=== PATIENT | female | born 1990 | race African-American/Black ===

== ENCOUNTER 2018-02-08 12:30 | Emergency (ER) | payer BC ==
[2018-02-08] MEDS ORDERED: SODIUM CHLORIDE 0.9% 1,000 ML IV STA (12:59)
[2018-02-08] MEDS ORDERED: ONDANSETRON 4 MG/2 ML VIAL IVP STA (12:59)
[2018-02-08 13:38] LABS: Basophils % (A) 0 %; Eosinophils # (A) 0.1 k/uL (0-0.7); Eosinophils % (A) 1 %; HCT 42.3 % (34.0-46.0); HGB 13.9 gm/dL (11.4-16.0); Lymphocytes # (A) 1.3 k/uL (1.0-4.8); Lymphocytes % (A) 11 %; MCH 28.4 pg (25.0-35.0); MCHC 32.9 g/dL (31.0-37.0); MCV 86.3 fL (80.0-100.0); Mean Platelet Volume 7.2; Monocytes # (A) 0.4 k/uL (0-1.0); Monocytes % (A) 4 %; Neutrophils # (A) 9.4 k/uL (1.3-7.7); Neutrophils % (A) 83 %; Platelet Count 238 k/uL (150-450); RDW 13.9 % (11.5-15.5); WBC 11.2 k/uL (3.8-10.6)
--- NOTE | 2018-02-08 13:46 | ED ---
General Adult HPI - General Chief complaint: Allergic Reaction Stated complaint: poss allergic rxn, facial swelling Time Seen by Provider: 02/08/18 12:44 Source: patient Mode of arrival: ambulatory Limitations: no limitations - History of Present Illness Initial comments: 27-year-old female patient presents to the emergency department today for evaluation of vomiting, facial swelling, and redness. Patient states she isn't taking clindamycin for the last 2 days for dental infection. Patient states that all night last night she had multiple episodes of vomiting is unable to keep down any food or fluids. Last vomiting episode was around 11 AM. Patient states she is having ALLERGIC reaction to the clindamycin. She denies any throat swelling, lip swelling, tongue swelling. She denies any rash. Denies any shortness of breath. She denies any abdominal pain, hematuria, dysuria, urinary frequency, urinary urgency. Denies any constipation or diarrhea. Patient denies any recent rash, fever, chills, chest pain, back pain, numbness, tingling, dizziness, weakness, headache, visual changes, or any other complaints. - Related Data Home Medications Medication Instructions Recorded Confirmed Albuterol Sulfate [Proair Hfa] 2 puff INHALATION RT-QID PRN 08/13/15 02/08/18 Budesonide-Formot 160-4.5 Mcg 2 puff INHALATION RT-BID 08/13/15 02/08/18 [Symbicort 160-4.5 Mcg Inhaler] Previous Rx's Medication Instructions Recorded Ibuprofen [Motrin] 600 mg PO Q8HR PRN #30 tab 02/08/18 Ondansetron [Zofran ODT] 4 mg PO Q8HR PRN #10 tab 02/08/18 predniSONE 50 mg PO DAILY #3 tab 02/08/18 Allergies Allergy/AdvReac Type Severity Reaction Status Date / Time cephalexin monohydrate Allergy Unknown Verified 02/08/18 12:55 [From Keflex] clindamycin Allergy Rash/Hives Verified 02/08/18 12:55 Review of Systems ROS Statement: Those systems with pertinent positive or pertinent negative responses have been documented in the HPI. ROS Other: All systems not noted in ROS Statement are negative. Past Medical History Past Medical History: Asthma History of Any Multi-Drug Resistant Organisms: MRSA MDRO Source:: axilla Past Surgical History: No Surgical Hx Reported Past Psychological History: No Psychological Hx Reported Smoking Status: Current every day smoker Past Alcohol Use History: Occasional Past Drug Use History: None Reported General Exam Limitations: no limitations General appearance: alert, in no apparent distress, other (This is a well- developed, well-nourished adult female patient in no acute distress. Vital signs upon presentation are temperature 98.0F, pulse 94, respirations 20, blood pressure 160/95, pulse ox 99% on room air.) Eye exam: Present: normal appearance, PERRL, EOMI. Absent: scleral icterus, conjunctival injection, periorbital swelling ENT exam: Present: normal exam, normal oropharynx, mucous membranes moist Respiratory exam: Present: normal lung sounds bilaterally. Absent: respiratory distress, wheezes, rales, rhonchi, stridor Cardiovascular Exam: Present: regular rate, normal rhythm, normal heart sounds. Absent: systolic murmur, diastolic murmur, rubs, gallop, clicks GI/Abdominal exam: Present: soft, normal bowel sounds. Absent: distended, tenderness, guarding, rebound, rigid Neurological exam: Present: alert, oriented X3, CN II-XII intact Psychiatric exam: Present: normal affect, normal mood Skin exam: Present: warm, dry, intact, normal color, rash (Patient has petechial rash to face and soft palate. Non-blanchable. No evidence of urticaria or vesicular lesions.) Course Vital Signs 02/08/18 02/08/18 02/08/18 12:41 14:05 15:34 Temperature 98 F 97.3 F L Pulse Rate 94 60 79 Respiratory 20 18 18 Rate Blood Pressure 160/95 139/59 131/96 O2 Sat by Pulse 99 100 98 Oximetry Medical Decision Making - Medical Decision Making 27-year-old female patient presents to the emergency department today for evaluation of possible ALLERGIC reaction to clindamycin which she is taking for dental infection. Physical examination did reveal mild generalized swelling of the face with petechial rash. Patient also had some petechiae to the soft palate. Patient did report vomiting throughout the night last night states that several episodes were quite forceful and did increase her facial pressure. Labs reviewed and did reveal normal platelet count. Did inspect the teeth, there is no evidence of periapical abscess at this time. Patient is ALLERGIC to both penicillins and clindamycin so she is instructed to call her dentist for further instruction regarding antibiotic use. She is instructed to return immediately for further evaluation if she develops localized facial swelling, fever, chills, or intraoral abscess. She'll be put on a 3 day course of steroids and instructed to take Benadryl as needed. Return parameters were discussed in detail. She verbalizes understanding and agrees with this plan. - Lab Data Result diagrams: 02/08/18 13:08 02/08/18 13:08 Lab Results 02/08/18 02/08/18 02/08/18 Range/Units 13:08 13:08 13:08 WBC 11.2 H (3.8-10.6) k/uL RBC 4.90 (3.80-5.40) m/uL Hgb 13.9 (11.4-16.0) gm/dL Hct 42.3 (34.0-46.0) % MCV 86.3 (80.0-100.0) fL MCH 28.4 (25.0-35.0) pg MCHC 32.9 (31.0-37.0) g/dL RDW 13.9 (11.5-15.5) % Plt Count 238 (150-450) k/uL Neutrophils % 83 % Lymphocytes % 11 % Monocytes % 4 % Eosinophils % 1 % Basophils % 0 % Neutrophils # 9.4 H (1.3-7.7) k/uL Lymphocytes # 1.3 (1.0-4.8) k/uL Monocytes # 0.4 (0-1.0) k/uL Eosinophils # 0.1 (0-0.7) k/uL Basophils # 0.0 (0-0.2) k/uL Sodium 138 (137-145) mmol/L Potassium 4.2 (3.5-5.1) mmol/L Chloride 109 H (98-107) mmol/L Carbon Dioxide 22 (22-30) mmol/L Anion Gap 7 mmol/L BUN 12 (7-17) mg/dL Creatinine 0.50 L (0.52-1.04) mg/dL Est GFR (CKD-EPI)AfAm >90 (>60 ml/min/1.73 sqM) Est GFR (CKD-EPI)NonAf >90 (>60 ml/min/1.73 sqM) Glucose 106 H (74-99) mg/dL Calcium 9.3 (8.4-10.2) mg/dL Total Bilirubin 0.5 (0.2-1.3) mg/dL AST 21 (14-36) U/L ALT 21 (9-52) U/L Alkaline Phosphatase 61 (38-126) U/L Total Protein 6.7 (6.3-8.2) g/dL Albumin 3.7 (3.5-5.0) g/dL Amylase 59 (30-110) U/L Lipase 44 (23-300) U/L Urine Color Urine Appearance (Clear) Urine pH (5.0-8.0) Ur Specific Fork (1.001-1.035) Urine Protein (Negative) Urine Glucose (UA) (Negative) Urine Ketones (Negative) Urine Blood (Negative) Urine Nitrite (Negative) Urine Bilirubin (Negative) Urine Urobilinogen (<2.0) mg/dL Ur Leukocyte Esterase (Negative) Urine WBC (0-5) /hpf Ur Squamous Epith Cells (0-4) /hpf Urine Bacteria (None) /hpf Urine Mucus (None) /hpf Urine HCG, Qual Not Detected (Not Detectd) 02/08/18 Range/Units 13:08 WBC (3.8-10.6) k/uL RBC (3.80-5.40) m/uL Hgb (11.4-16.0) gm/dL Hct (34.0-46.0) % MCV (80.0-100.0) fL MCH (25.0-35.0) pg MCHC (31.0-37.0) g/dL RDW (11.5-15.5) % Plt Count (150-450) k/uL Neutrophils % % Lymphocytes % % Monocytes % % Eosinophils % % Basophils % % Neutrophils # (1.3-7.7) k/uL Lymphocytes # (1.0-4.8) k/uL Monocytes # (0-1.0) k/uL Eosinophils # (0-0.7) k/uL Basophils # (0-0.2) k/uL Sodium (137-145) mmol/L Potassium (3.5-5.1) mmol/L Chloride (98-107) mmol/L Carbon Dioxide (22-30) mmol/L Anion Gap mmol/L BUN (7-17) mg/dL Creatinine (0.52-1.04) mg/dL Est GFR (CKD-EPI)AfAm (>60 ml/min/1.73 sqM) Est GFR (CKD-EPI)NonAf (>60 ml/min/1.73 sqM) Glucose (74-99) mg/dL Calcium (8.4-10.2) mg/dL Total Bilirubin (0.2-1.3) mg/dL AST (14-36) U/L ALT (9-52) U/L Alkaline Phosphatase (38-126) U/L Total Protein (6.3-8.2) g/dL Albumin (3.5-5.0) g/dL Amylase (30-110) U/L Lipase (23-300) U/L Urine Color Yellow Urine Appearance Cloudy H (Clear) Urine pH 7.0 (5.0-8.0) Ur Specific Fork 1.030 (1.001-1.035) Urine Protein Trace H (Negative) Urine Glucose (UA) Negative (Negative) Urine Ketones 1+ H (Negative) Urine Blood Negative (Negative) Urine Nitrite Negative (Negative) Urine Bilirubin Negative (Negative) Urine Urobilinogen <2.0 (<2.0) mg/dL Ur Leukocyte Esterase Negative (Negative) Urine WBC 1 (0-5) /hpf Ur Squamous Epith Cells 26 H (0-4) /hpf Urine Bacteria Rare H (None) /hpf Urine Mucus Occasional H (None) /hpf Urine HCG, Qual (Not Detectd) Disposition Clinical Impression: Pain, dental, Allergic reaction Disposition: HOME SELF-CARE Condition: Good Instructions: Toothache (ED), General Allergic Reaction (ED) Additional Instructions: Continue all medications as directed. Take ibuprofen in addition to Tylenol 3 for pain control. Apply cool compresses to the face. Follow-up with dentistry as soon as possible. Return immediately for any new, worsening, or concerning symptoms Prescriptions: Ibuprofen [Motrin] 600 mg PO Q8HR PRN #30 tab PRN Reason: Pain Ondansetron [Zofran ODT] 4 mg PO Q8HR PRN #10 tab PRN Reason: Nausea predniSONE 50 mg PO DAILY #3 tab Is patient prescribed a controlled substance at d/c from ED?: No Referrals: Haroon Nesbitt MD [Primary Care Provider] - 1-2 days Time of Disposition: 15:04
[2018-02-08 13:49] LABS: ALT 21 U/L (9-52); AST 21 U/L (14-36); Albumin 3.7 g/dL (3.5-5.0); Alkaline Phosphatase 61 U/L (38-126); Amylase 59 U/L (30-110); Anion Gap 7 mmol/L; Blood Urea Nitrogen 12 mg/dL (7-17); Calcium 9.3 mg/dL (8.4-10.2); Carbon Dioxide 22 mmol/L (22-30); Chloride 109 mmol/L (98-107); Glucose 106 mg/dL (74-99); Lipase 44 U/L (23-300); Potassium 4.2 mmol/L (3.5-5.1); Sodium 138 mmol/L (137-145); Total Bilirubin 0.5 mg/dL (0.2-1.3); Total Protein 6.7 g/dL (6.3-8.2)
[2018-02-08 14:01] LABS: Appearance,Urine Cloudy (Clear); Bacteria,Urine Rare /hpf; Bilirubin,Urine Negative (Negative); Blood,Urine Negative (Negative); Color,Urine Yellow; Glucose,Urine (UA) Negative (Negative); Ketones,Urine 1+ (Negative); Leukocyte Esterase,Urine Negative (Negative); Mucus,Urine Occasional /hpf; Nitrite,Urine Negative (Negative); Protein,Urine Trace (Negative); Squamous Epithelial Cell,Urine 26 /hpf (0-4); Urobilinogen,Urine <2.0 mg/dL (<2.0); WBC,Urine 1 /hpf (0-5)
[2018-02-08 14:06] VITALS: RESP 18
[2018-02-08] MEDS ORDERED: KETOROLAC 30 MG/ML 1 ML VIAL IVP STA (14:32)
[2018-02-08] MEDS ORDERED: MORPHINE SULFATE 2 MG/ML SYRINGE IVP STA (14:32)
[2018-02-08] MEDS ORDERED: predniSONE 50 MG TAB PO STA (15:04)
[2018-02-08] MEDS ORDERED: diphenhydrAMINE 50 MG CAP PO STA (15:04)
[2018-02-08 15:36] VITALS: BP 131/96; PULSE 79; TEMP 97.3
== END 2018-02-08 15:36 | disposition home or self-care (01) ==
LOC: EC 12:30
DX: K08.89 Other specified disorders of teeth and supporting structures (principal); R11.10 Vomiting, unspecified; R22.0 Localized swelling, mass and lump, head; R21 Rash and other nonspecific skin eruption; T36.8X5A Adverse effect of other systemic antibiotics, initial encounter; J45.909 Unspecified asthma, uncomplicated; F17.200 Nicotine dependence, unspecified, uncomplicated; Z86.14 Personal history of Methicillin resistant Staphylococcus aureus infection; Z88.0 Allergy status to penicillin; Z79.51 Long term (current) use of inhaled steroids; Z88.1 Allergy status to other antibiotic agents
CPT/HCPCS: 36415; 80053; 82150; 83690; 85025; 81001; 81025; 87086; 99284; 96374; 96375 ×2; 96361; J2405; J1885; J2270; J7512

== ENCOUNTER 2018-08-31 23:59 | Emergency (ER) | payer BC, OTHER ==
[2018-09-01 00:16] VITALS: BP 146/85; PULSE 100; TEMP 98.6
[2018-09-01] MEDS ORDERED: FAMOTIDINE 20 MG TAB PO STA (00:26)
[2018-09-01] MEDS ORDERED: methylPREDNISolone SOD SUCCI 125 MG/2 ML VIAL IM ONE (00:26)
--- NOTE | 2018-09-01 00:29 | ED ---
General Adult HPI - General Chief complaint: Allergic Reaction Stated complaint: poss allergic reaction Time Seen by Provider: 09/01/18 00:18 Source: patient Mode of arrival: ambulatory Limitations: no limitations - History of Present Illness Initial comments: 28-year-old female patient presents to the emergency department today for evaluation of rash and redness to the face. Patient states that she was seen and evaluated for this at [facility] this morning and was diagnosed with ALLERGIC reaction. States she was given an injection of steroids and instructed to take Benadryl. She was given a prescription of steroids which she has not filled this yet. Patient states that this evening her face became hot and seemed to be worsening so she presented here for further evaluation. She denies any lip, tongue, or throat swelling. Denies any shortness of breath. He denies any itching to the face. Patient denies any use of new products including creams, lotions, makeup, or sunscreen. She denies any exposure to other new substances including foods, detergents, soaps, or drinks. She denies any fever or chills. Denies any excessive exposure to the sun. Patient denies any recent shortness breath, chest pain, abdominal pain, nausea, vomiting, diarrhea, constipation, back pain, numbness, tingling, dizziness, weakness, hematuria, dysuria, urinary urgency, urinary frequency, headache, visual changes, or any other complaints. - Related Data Home Medications Medication Instructions Recorded Confirmed Albuterol Sulfate [Proair Hfa] 2 puff INHALATION RT-QID PRN 08/13/15 02/08/18 Budesonide-Formot 160-4.5 Mcg 2 puff INHALATION RT-BID 08/13/15 02/08/18 [Symbicort 160-4.5 Mcg Inhaler] Previous Rx's Medication Instructions Recorded Ibuprofen [Motrin] 600 mg PO Q8HR PRN #30 tab 02/08/18 Ondansetron [Zofran ODT] 4 mg PO Q8HR PRN #10 tab 02/08/18 predniSONE 50 mg PO DAILY #3 tab 02/08/18 Famotidine [Pepcid] 20 mg PO DAILY #3 tablet 09/01/18 Allergies Allergy/AdvReac Type Severity Reaction Status Date / Time cephalexin monohydrate Allergy Unknown Verified 09/01/18 00:16 [From Keflex] clindamycin Allergy Rash/Hives Verified 09/01/18 00:16 Review of Systems ROS Statement: Those systems with pertinent positive or pertinent negative responses have been documented in the HPI. ROS Other: All systems not noted in ROS Statement are negative. Past Medical History Past Medical History: Asthma History of Any Multi-Drug Resistant Organisms: MRSA MDRO Source:: axilla Past Surgical History: No Surgical Hx Reported Past Psychological History: No Psychological Hx Reported Smoking Status: Current every day smoker Past Alcohol Use History: Occasional Past Drug Use History: None Reported General Exam Limitations: no limitations General appearance: alert, in no apparent distress, other (This is a well- developed, well-nourished adult female patient in no acute distress. Vital signs upon presentation are temperature 98.6F, pulse 100, respirations 22, blood pressure 146/85, pulse ox 97% on room air) Eye exam: Present: normal appearance, PERRL, EOMI. Absent: scleral icterus, conjunctival injection, periorbital swelling ENT exam: Present: normal exam, normal oropharynx, mucous membranes moist Respiratory exam: Present: normal lung sounds bilaterally. Absent: respiratory distress, wheezes, rales, rhonchi, stridor Cardiovascular Exam: Present: regular rate, normal rhythm, normal heart sounds. Absent: systolic murmur, diastolic murmur, rubs, gallop, clicks GI/Abdominal exam: Present: soft, normal bowel sounds. Absent: distended, tenderness, guarding, rebound, rigid Neurological exam: Present: alert, oriented X3, CN II-XII intact Psychiatric exam: Present: normal affect, normal mood Skin exam: Present: warm, dry, intact, normal color, rash (Papular rash noted over the face. There is some surrounding erythema. No drainage. Lesions are non-petechial, nonvesicular.) Course Vital Signs 09/01/18 09/01/18 00:11 00:39 Temperature 98.6 F Pulse Rate 100 Respiratory 22 18 Rate Blood Pressure 146/85 O2 Sat by Pulse 97 Oximetry Medical Decision Making - Medical Decision Making 28 year-old female patient presented to the emergency department today for evaluation of redness and rash to her face. Denies fever or chills. Denies lip, tongue, or throat swelling. Denies shortness of breath. Lungs are clear to auscultation with good air movement. Patient was diagnosed with ALLERGIC reaction this morning. She has been taking Benadryl without relief of symptoms. Patient will be given additional dose of steroids here in the emergency department. She is instructed to fill her prescription and take the medication as directed. We'll add Pepcid to her regimen. She is instructed take Benadryl every 6 hours as needed. She is instructed to follow-up with her primary care physician for recheck in 1-2 days. Return parameters were discussed in detail. She verbalizes understanding and agrees with this plan. Disposition Clinical Impression: Allergic reaction Disposition: HOME SELF-CARE Condition: Good Instructions (If sedation given, give patient instructions): General Allergic Reaction (ED) Additional Instructions: Increase fluids. Complete prescriptions as directed. Continue benadryl every 6 hours. Return to the emergency department immediately for any new, worsening, or concerning symptoms. Prescriptions: Famotidine [Pepcid] 20 mg PO DAILY #3 tablet Is patient prescribed a controlled substance at d/c from ED?: No Referrals: Haroon Nesbitt MD [Primary Care Provider] - 1-2 days Time of Disposition: 00:29
[2018-09-01 00:42] VITALS: RESP 18
== END 2018-09-01 01:19 | disposition home or self-care (01) ==
LOC: EC 23:59
DX: T78.40XA Allergy, unspecified, initial encounter (principal); F17.200 Nicotine dependence, unspecified, uncomplicated; J45.909 Unspecified asthma, uncomplicated; Z88.1 Allergy status to other antibiotic agents; Z79.51 Long term (current) use of inhaled steroids
CPT/HCPCS: 99283; 96372; J2930

== ENCOUNTER 2018-12-24 11:31 | Emergency (ER) | payer OTHER ==
[2018-12-24 11:42] VITALS: BP 113/71; RESP 18; TEMP 98.2
[2018-12-24] MEDS ORDERED: IPRATROPIUM-ALBUTEROL 3 ML NEB INHALATION STA (12:33)
--- NOTE | 2018-12-24 12:42 | ED ---
Pediatric SOB HPI - General Chief Complaint: Shortness of Breath Stated Complaint: Sob Time Seen by Provider: 12/24/18 11:49 Source: patient, RN notes reviewed Mode of arrival: ambulatory Limitations: no limitations - History of Present Illness Initial Comments: 28-year-old female presents to the emergency Department chief complaint of dyspnea. Patient states she's had a cough over the last week or so. She does have underlying asthma. She ran out of her Symbicort and was [facility]. Patient states that she has not given any steroids though she was given amoxicillin. Patient states that all. Patient has been using her rescue inhaler more often than she should. Patient denies fever, chills. She states she has nasal congestion, cough, sore throat or cough is productive with phlegm. She states that her ribs hurt from coughing. Patient has a palpitations. - Related Data Home Medications Medication Instructions Recorded Confirmed Albuterol Sulfate [Proair Hfa] 2 puff INHALATION RT-QID PRN 08/13/15 02/08/18 Budesonide-Formot 160-4.5 Mcg 2 puff INHALATION RT-BID 08/13/15 02/08/18 [Symbicort 160-4.5 Mcg Inhaler] Previous Rx's Medication Instructions Recorded Ibuprofen [Motrin] 600 mg PO Q8HR PRN #30 tab 02/08/18 Ondansetron [Zofran ODT] 4 mg PO Q8HR PRN #10 tab 02/08/18 predniSONE 50 mg PO DAILY #3 tab 02/08/18 Famotidine [Pepcid] 20 mg PO DAILY #3 tablet 09/01/18 Azithromycin [Zithromax Z-pack] 0 mg PO DIRECTED #1 pack 12/24/18 predniSONE 50 mg PO DAILY #5 tab 12/24/18 Allergies Allergy/AdvReac Type Severity Reaction Status Date / Time cephalexin monohydrate Allergy Unknown Verified 12/24/18 11:38 [From Keflex] clindamycin Allergy Rash/Hives Verified 12/24/18 11:38 Review of Systems ROS Statement: Those systems with pertinent positive or pertinent negative responses have been documented in the HPI. ROS Other: All systems not noted in ROS Statement are negative. Past Medical History Past Medical History: Asthma History of Any Multi-Drug Resistant Organisms: MRSA MDRO Source:: axilla Past Surgical History: No Surgical Hx Reported Past Psychological History: Anxiety Smoking Status: Former smoker Past Alcohol Use History: None Reported Past Drug Use History: Marijuana General Exam Limitations: no limitations General appearance: alert, in no apparent distress Head exam: Present: atraumatic, normocephalic, normal inspection Eye exam: Present: normal appearance, PERRL, EOMI. Absent: scleral icterus, conjunctival injection, periorbital swelling ENT exam: Present: normal exam, normal oropharynx, mucous membranes moist, TM's normal bilaterally, normal external ear exam Neck exam: Present: normal inspection, full ROM. Absent: tenderness, meningismus, lymphadenopathy Respiratory exam: Present: respiratory distress (Mild), wheezes, decreased breath sounds. Absent: normal lung sounds bilaterally, rales, rhonchi, stridor Cardiovascular Exam: Present: normal rhythm, tachycardia, normal heart sounds. Absent: systolic murmur, diastolic murmur, rubs, gallop, clicks GI/Abdominal exam: Present: soft, normal bowel sounds. Absent: distended, tenderness, guarding, rebound, rigid Neurological exam: Present: alert, oriented X3 Skin exam: Present: warm, dry, intact, normal color. Absent: rash Course Vital Signs 12/24/18 12/24/18 12/24/18 11:38 12:42 12:50 Temperature 98.2 F Pulse Rate 113 H 78 72 Respiratory 18 Rate Blood Pressure 113/71 O2 Sat by Pulse 97 Oximetry 12/24/18 12:59 Temperature Pulse Rate 84 Respiratory Rate Blood Pressure O2 Sat by Pulse Oximetry Medical Decision Making - Medical Decision Making Chest x-ray shows evidence of bronchitis versus reactive airway disease. Patient's supraventricular DuoNeb treatment. Patient be discharged with prednisone and azithromycin. Patient will continue her inhalers and return for any worsening symptoms. Disposition Clinical Impression: Asthmatic bronchitis Disposition: HOME SELF-CARE Condition: Stable Instructions (If sedation given, give patient instructions): Acute Bronchitis (ED), Asthma (ED) Additional Instructions: Please return to the Emergency Department if symptoms worsen or any other concerns. Prescriptions: predniSONE 50 mg PO DAILY #5 tab Azithromycin [Zithromax Z-pack] 0 mg PO DIRECTED #1 pack Is patient prescribed a controlled substance at d/c from ED?: No Referrals: Haroon Nesbitt MD [Primary Care Provider] - 1-2 days Time of Disposition: 13:20
--- NOTE | 2018-12-24 12:54 | XR ---
EXAMINATION TYPE: XR chest 2V DATE OF EXAM: 12/24/2018 COMPARISON: Prior chest x-ray 06/06/2013 HISTORY: Cough, shortness of breath and asthma TECHNIQUE: Frontal and lateral views of the chest are obtained. FINDINGS: There is no pleural effusion or pneumothorax seen. Question positive spine sign on the lat eral exam with some possible increased density posterior to the right heart perhaps indicating some r ight lower lobe airspace disease. The cardiac silhouette size is within normal limits. The osseous structures are intact. Suspect some bronchial wall thickening. IMPRESSION: Correlate for bronchitis, reactive airways disease, possible early airspace disease, fol low-up as indicated
[2018-12-24 13:00] VITALS: PULSE 84
[2018-12-24] MEDS ORDERED: methylPREDNISolone SOD SUCCI 125 MG/2 ML VIAL IM ONE (13:18)
== END 2018-12-24 13:32 | disposition home or self-care (01) ==
LOC: EC 11:31
DX: J45.909 Unspecified asthma, uncomplicated (principal); Z79.51 Long term (current) use of inhaled steroids; Z88.1 Allergy status to other antibiotic agents; Z87.891 Personal history of nicotine dependence
CPT/HCPCS: 94640 ×2; 94644; 71046; 99284; 96372; J2930

== ENCOUNTER 2019-01-01 03:18 | Emergency (ER) | payer OTHER ==
--- NOTE | 2019-01-01 03:35 | ED ---
Chest Pain HPI - General Chief Complaint: Chest Pain Stated Complaint: Chest Pain Time Seen by Provider: 01/01/19 03:27 Source: patient Mode of arrival: wheelchair Limitations: physical limitation - History of Present Illness Initial Comments: Patient is a 28-year-old female with history of asthma and anxiety is presenting to the emergency department with chief complaint of chest pain. Patient reports she was in the ED 3 days ago and treated for asthma. Patient reports the pain that appears to be exacerbated after periods of coughing fits. Patient denies any shortness of breath and states the pain is not pleuritic in nature. Chest pain is reproducible with palpation. Patient denies any dyspnea on exertion, diaphoretic episodes, nausea or vomiting. She denies any headaches, blurry vision or any chest palpitations, back pain or abdominal pain. - Related Data Home Medications Medication Instructions Recorded Confirmed Albuterol Sulfate [Proair Hfa] 2 puff INHALATION RT-QID PRN 08/13/15 02/08/18 Budesonide-Formot 160-4.5 Mcg 2 puff INHALATION RT-BID 08/13/15 02/08/18 [Symbicort 160-4.5 Mcg Inhaler] Previous Rx's Medication Instructions Recorded Ibuprofen [Motrin] 600 mg PO Q8HR PRN #30 tab 02/08/18 Ondansetron [Zofran ODT] 4 mg PO Q8HR PRN #10 tab 02/08/18 predniSONE 50 mg PO DAILY #3 tab 02/08/18 Famotidine [Pepcid] 20 mg PO DAILY #3 tablet 09/01/18 Azithromycin [Zithromax Z-pack] 0 mg PO DIRECTED #1 pack 12/24/18 predniSONE 50 mg PO DAILY #5 tab 12/24/18 Allergies Allergy/AdvReac Type Severity Reaction Status Date / Time cephalexin monohydrate Allergy Unknown Verified 01/01/19 03:25 [From [employer]] clindamycin Allergy Rash/Hives Verified 01/01/19 03:25 Review of Systems ROS Statement: Those systems with pertinent positive or pertinent negative responses have been documented in the HPI. ROS Other: All systems not noted in ROS Statement are negative. EKG Findings - EKG Comments: EKG Findings:: Normal sinus rhythm, lead 3 T-wave inversion. Ventricular rate 86, AK interval 154, QRS duration 86, QT/QTc is 344/411. Past Medical History Past Medical History: Asthma History of Any Multi-Drug Resistant Organisms: MRSA Date of last positivie culture/infection: 2005 MDRO Source:: axilla Past Surgical History: No Surgical Hx Reported Past Psychological History: Anxiety Smoking Status: Former smoker Past Alcohol Use History: None Reported Past Drug Use History: Marijuana General Exam Limitations: physical limitation Course Vital Signs 01/01/19 01/01/19 03:20 04:54 Temperature 98 F 97.9 F Pulse Rate 88 92 Respiratory 18 17 Rate Blood Pressure 129/88 142/91 O2 Sat by Pulse 97 100 Oximetry Chest Pain MDM - Differential Diagnosis Pleurisy-Other - MDM Patient is 28-year-old female presenting to emergency department with a chief complaint of chest pain. Physical examination is unremarkable. Auscultation patient does not appear to be wheezing. EKG showed normal sinus rhythm. Chest x-ray is unremarkable. I suspect the patient to have atypical chest pain secondary to the repetitive coughing fits. Patient denies any typical chest pain features. Strict return parameters were thoroughly discussed with patient was understanding and agreeable. Patient advised to follow-up with primary care. Case discussed with physician. - Wells Criteria Clinical Symptoms of DVT: (0) No No Alternative Diagnosis: (0) No Immobilization of Surgery in Previous 4 Weeks: (0) No Previous DVT/PE: (0) No Hemoptysis: (0) No Malignancy: (0) No Disposition Clinical Impression: Atypical chest pain Disposition: HOME SELF-CARE Condition: Stable Instructions (If sedation given, give patient instructions): Chest Pain (ED) Additional Instructions: Please follow up with primary care. Please return to emergency department is symptoms worsen. Is patient prescribed a controlled substance at d/c from ED?: No Referrals: Haroon Nesbitt MD [Primary Care Provider] - 1-2 days Time of Disposition: 04:51
--- NOTE | 2019-01-01 04:07 | XR ---
EXAMINATION TYPE: XR chest 2V DATE OF EXAM: 01/01/2019 COMPARISON: 12/24/2018 HISTORY: Chest pain TECHNIQUE: Frontal and lateral views of the chest are obtained. Heart and mediastinum are normal. Lungs are clear. Diaphragm is normal. Bony thorax appears normal. IMPRESSION: Normal chest. No change.
[2019-01-01 04:57] VITALS: BP 142/91; PULSE 92; RESP 17; TEMP 97.9
== END 2019-01-01 04:57 | disposition home or self-care (01) ==
LOC: EC 03:18
DX: R07.89 Other chest pain (principal); R05 Cough; J45.909 Unspecified asthma, uncomplicated; Z79.51 Long term (current) use of inhaled steroids; Z88.1 Allergy status to other antibiotic agents; Z87.891 Personal history of nicotine dependence; Z86.14 Personal history of Methicillin resistant Staphylococcus aureus infection
CPT/HCPCS: 71046; 93005; 99285

== ENCOUNTER 2019-02-17 20:56 | Emergency (ER) | payer OTHER ==
[2019-02-17 21:00] VITALS: BP 140/82; TEMP 98.7
[2019-02-17] MEDS ORDERED: predniSONE 20 MG TAB PO STA (21:16)
[2019-02-17] MEDS ORDERED: ALBUTEROL NEBULIZED 2.5 MG/3 ML INHALATION STA (21:16)
[2019-02-17] MEDS ORDERED: SYMBICORT 160-4.5 MCG INHALER INHALATION STA (21:17)
[2019-02-17] MEDS ORDERED: IPRATROPIUM-ALBUTEROL 3 ML NEB INHALATION STA (21:17)
--- NOTE | 2019-02-17 21:21 | ED ---
SOB HPI - General Chief Complaint: Shortness of Breath Stated Complaint: asthma,sob Time Seen by Provider: 02/17/19 21:07 Source: patient Mode of arrival: ambulatory Limitations: no limitations - History of Present Illness Initial Comments: This patient is 28-year-old woman who presents to be evaluated for which she believes is an asthma exacerbation. The patient states that she has history of asthma and that it is often exacerbated by changes in weather. She states that she ran out of her Symbicort a while ago as well which may be contributing to this exacerbation. She states that she has been having increasing amount of coughing (without sputum ) wheezing, and feeling short of breath. The patient denies symptoms which are not typical. She has not had fever or chills. She is not having purulent sputum. No chest pain. No change in urination or bowel movements. No leg pain or swelling. MD Complaint: shortness of breath, cough, "asthma attack" Onset/Timin -: days(s) Severity scale (1-10): 0 Consistency: constant Improves With: nothing Worsens With: nothing Known History Of: asthma Context: medication noncompliance Associated Symptoms: denies other symptoms Treatments Prior to Arrival: bronchodilator - Related Data Home Oxygen Therapy: No Home Medications Medication Instructions Recorded Confirmed Albuterol Sulfate [Proair Hfa] 2 puff INHALATION RT-QID PRN 08/13/15 02/08/18 Budesonide-Formot 160-4.5 Mcg 2 puff INHALATION RT-BID 08/13/15 02/08/18 [Symbicort 160-4.5 Mcg Inhaler] Previous Rx's Medication Instructions Recorded Ibuprofen [Motrin] 600 mg PO Q8HR PRN #30 tab 02/08/18 Ondansetron [Zofran ODT] 4 mg PO Q8HR PRN #10 tab 02/08/18 predniSONE 50 mg PO DAILY #3 tab 02/08/18 Famotidine [Pepcid] 20 mg PO DAILY #3 tablet 09/01/18 Azithromycin [Zithromax Z-pack] 0 mg PO DIRECTED #1 pack 12/24/18 predniSONE 50 mg PO DAILY #5 tab 12/24/18 Albuterol Inhaler [Ventolin Hfa 1 - 2 puff INHALATION Q6HR PRN #1 02/17/19 Inhaler] inhaler Budesonide-Formot 160-4.5 Mcg 2 puff INHALATION BID #1 inhaler 02/17/19 [Symbicort 160-4.5 Mcg Inhaler] predniSONE 60 mg PO DAILY #30 tab 02/17/19 Allergies Allergy/AdvReac Type Severity Reaction Status Date / Time cephalexin monohydrate Allergy Unknown Verified 02/17/19 21:00 [From Keflex] clindamycin Allergy Rash/Hives Verified 02/17/19 21:00 Review of Systems ROS Statement: Those systems with pertinent positive or pertinent negative responses have been documented in the HPI. ROS Other: All systems not noted in ROS Statement are negative. Constitutional: Denies: fever, chills, weakness Respiratory: Reports: cough, dyspnea, wheezes. Denies: hemoptysis Cardiovascular: Denies: chest pain, palpitations, edema, syncope Gastrointestinal: Denies: abdominal pain, vomiting, diarrhea, melena, hematochezia Genitourinary: Denies: dysuria, hematuria Musculoskeletal: Denies: back pain Skin: Denies: rash Neurological: Denies: headache Past Medical History Past Medical History: Asthma History of Any Multi-Drug Resistant Organisms: MRSA Date of last positivie culture/infection: 2005 MDRO Source:: axilla Past Surgical History: No Surgical Hx Reported Past Psychological History: Anxiety Smoking Status: Former smoker Past Alcohol Use History: None Reported Past Drug Use History: Marijuana General Exam Limitations: no limitations General appearance: alert, in no apparent distress Head exam: Present: atraumatic, normocephalic Eye exam: Present: normal appearance. Absent: scleral icterus, conjunctival injection ENT exam: Present: normal oropharynx Respiratory exam: Present: wheezes. Absent: respiratory distress, rales, rhonchi, stridor, accessory muscle use, decreased breath sounds, prolonged expiratory Cardiovascular Exam: Present: regular rate (Rate 92 at my exam), normal rhythm, normal heart sounds. Absent: systolic murmur, diastolic murmur, rubs, gallop Extremities exam: Present: normal inspection, normal capillary refill. Absent: pedal edema, calf tenderness Back exam: Present: normal inspection. Absent: CVA tenderness (R), CVA tenderness (L) Neurological exam: Present: alert Skin exam: Present: warm, dry, intact, normal color. Absent: rash Course Vital Signs 02/17/19 02/17/19 20:58 21:29 Temperature 98.7 F Pulse Rate 101 H 100 Respiratory 22 Rate Blood Pressure 140/82 O2 Sat by Pulse 99 Oximetry Disposition Clinical Impression: Asthma with acute exacerbation Disposition: HOME SELF-CARE Condition: Good Instructions (If sedation given, give patient instructions): Asthma (ED) Prescriptions: predniSONE 60 mg PO DAILY #30 tab Budesonide-Formot 160-4.5 Mcg [Symbicort 160-4.5 Mcg Inhaler] 2 puff INHALATION BID #1 inhaler Albuterol Inhaler [Ventolin Hfa Inhaler] 1 - 2 puff INHALATION Q6HR PRN #1 inhal er PRN Reason: Wheezing Is patient prescribed a controlled substance at d/c from ED?: No Referrals: Haroon Nesbitt MD [Primary Care Provider] - 1-2 days
[2019-02-17 22:04] VITALS: PULSE 98; RESP 20
== END 2019-02-17 22:00 | disposition home or self-care (01) ==
LOC: EC 20:56
DX: J45.901 Unspecified asthma with (acute) exacerbation (principal); T48.6X6A Underdosing of antiasthmatics, initial encounter; Z91.138 Patient's unintentional underdosing of medication regimen for other reason; Z87.891 Personal history of nicotine dependence; Z88.1 Allergy status to other antibiotic agents; Z79.51 Long term (current) use of inhaled steroids; Z86.14 Personal history of Methicillin resistant Staphylococcus aureus infection
CPT/HCPCS: 94640 ×2; 99284; J7512

== ENCOUNTER 2019-07-17 14:50 | Emergency (ER) | payer OTHER ==
[2019-07-17] MEDS ORDERED: PENICILLIN VK 500MG STARTER 4 TAB BTL PO STA (18:00)
[2019-07-17] MEDS ORDERED: ACET/COD 300 MG/30 MG STARTER PACK 6 TAB BTL PO STA ×2 (18:00→18:44)
--- NOTE | 2019-07-17 18:00 | ED ---
General Adult HPI - General Chief complaint: Dental/Oral Stated complaint: toothache Time Seen by Provider: 07/17/19 16:39 Source: patient, RN notes reviewed, old records reviewed Mode of arrival: ambulatory Limitations: no limitations - History of Present Illness Initial comments: 28-year-old female patient by Yuki for chief complaint of one week of dental pain. Patient reports that she had a root canal started however was unable to go to her follow-up treatment due to money issues she reports pain in her left upper incisor. Denies any other complaints this time. Systemic: Pt denies fatigue, fever/chills, rash. Pt denies weakness, night sweats, weight loss. Neuro: Pt denies headache, visual disturbances, syncope or pre-syncope. HEENT: Pt denies ocular discharge or irritation, otalgia, rhinorrhea, pharyngitis or notable lymphadenopathy. Cardiopulmonary: Pt denies chest pain, SOB, heart palpitations, dyspnea on exertion. Abdominal/GI: Pt denies abdominal pain, n/v/d. : Pt denies dysuria, burning w/ urination, frequency/urgency. Denies new onset urinary or bowel incontinence. MSK: Pt denies myalgia, loss of strength or function in extremities. Neuro: Pt denies new onset weakness, paresthesias. - Related Data Home Medications Medication Instructions Recorded Confirmed Albuterol Sulfate [Proair Hfa] 2 puff INHALATION RT-QID PRN 08/13/15 02/08/18 Budesonide-Formot 160-4.5 Mcg 2 puff INHALATION RT-BID 08/13/15 02/08/18 [Symbicort 160-4.5 Mcg Inhaler] Previous Rx's Medication Instructions Recorded Ibuprofen [Motrin] 600 mg PO Q8HR PRN #30 tab 02/08/18 Ondansetron [Zofran ODT] 4 mg PO Q8HR PRN #10 tab 02/08/18 predniSONE 50 mg PO DAILY #3 tab 02/08/18 Famotidine [Pepcid] 20 mg PO DAILY #3 tablet 09/01/18 Azithromycin [Zithromax Z-pack] 0 mg PO DIRECTED #1 pack 12/24/18 predniSONE 50 mg PO DAILY #5 tab 12/24/18 Albuterol Inhaler (Mhu) [Ventolin 1 - 2 puff INHALATION Q6HR PRN #1 01/06/20 Hfa Inhaler (Mhu)] inhaler Budesonide-Formot 160-4.5 Mcg 2 puff INHALATION BID #1 inhaler 02/17/19 [Symbicort 160-4.5 Mcg Inhaler] predniSONE 60 mg PO DAILY #30 tab 02/17/19 Sulfamethox-Tmp 800-160Mg [Bactrim 1 tab PO Q12HR 10 Days #20 tab 07/17/19 DS 800-160 mg] Allergies Allergy/AdvReac Type Severity Reaction Status Date / Time cephalexin monohydrate Allergy Unknown Verified 07/17/19 15:25 [From Keflex] clindamycin Allergy Rash/Hives Verified 07/17/19 15:25 Review of Systems ROS Statement: Those systems with pertinent positive or pertinent negative responses have been documented in the HPI. ROS Other: All systems not noted in ROS Statement are negative. Past Medical History Past Medical History: Asthma History of Any Multi-Drug Resistant Organisms: MRSA Date of last positivie culture/infection: 2005 MDRO Source:: axilla Past Surgical History: No Surgical Hx Reported Past Psychological History: Anxiety Smoking Status: Current every day smoker Past Alcohol Use History: None Reported Past Drug Use History: Marijuana General Exam - General Exam Comments Initial Comments: Constitutional: NAD, AOX3, Pt has pleasant affect. HEENT: NC/AT, trachea midline, neck supple, no lymphadenopathy. Posterior pharynx non erythematous, without exudates. External ears appear normal, without discharge. Mucous membranes moist. Eyes PERRLA, EOM intact. There is no scleral icterus. No pallor noted. Mild amount of erythema noted in left upper incisor gum. No abscess. No drainage. Cardiopulmonary: RRR, no murmurs, rubs or gallops, no JVD noted. Lungs CTAB in anterior and posterior ulloa. No peripheral edema. Neuro: CN II-XII grossly intact. No nuchal rigidity. No raccon eyes, no downs sign, no hemotympanum. Limitations: no limitations Course Vital Signs 07/17/19 07/17/19 15:23 16:08 Temperature 98.4 F 98.3 F Pulse Rate 94 89 Respiratory 18 18 Rate Blood Pressure 124/88 143/98 O2 Sat by Pulse 100 Oximetry Medical Decision Making - Medical Decision Making 28-year-old female patient presents to ED for chief complaint dental pain. Patient states that she is sexually active therefore she thirdly could be . Physical exam doesn't display erythema around the left upper incisor. HCG qualitative was negative. Patient was placed on Bactrim due to ALLERGIES. Patient had anaphylaxis to Keflex and clindamycin and therefore pen films will be avoided. Will be discharged to follow-up with dentist tomorrow and return to ER if condition worsens. Case discussed with Dr. Barajas. - Lab Data Lab Results 07/17/19 Range/Units 17:19 Urine HCG, Qual Not Detected (Not Detectd) Disposition Clinical Impression: Pain, dental Disposition: HOME SELF-CARE Condition: Stable Instructions (If sedation given, give patient instructions): Toothache (ED) Additional Instructions: Follow up with PCP and dentist tomorrow. Take antibiotics as directed. Return to ED if condition worsens. Prescriptions: Sulfamethox-Tmp 800-160Mg [Bactrim DS 800-160 mg] 1 tab PO Q12HR 10 Days #20 tab Is patient prescribed a controlled substance at d/c from ED?: No Referrals: Nick Ray MD [Primary Care Provider] - 1-2 days
[2019-07-17] MEDS ORDERED: SULFAMETHOX-TMP 800-160MG 1 EACH TAB PO STA (18:06)
[2019-07-17] MEDS ORDERED: SULFAMETH-TMP DS STARTER PACK 2 TAB BTL PO STA (18:06)
[2019-07-17] MEDS ORDERED: KETOROLAC 60 MG/2 ML VIAL IM STA (18:07)
[2019-07-17] MEDS ORDERED: IBUPROFEN 600 MG STARTER PACK 4 TAB BTL PO STA (18:07)
[2019-07-17 18:51] VITALS: BP 129/70; PULSE 80; RESP 16; TEMP 97.9
== END 2019-07-17 18:49 | disposition home or self-care (01) ==
LOC: EC 14:50
DX: K08.89 Other specified disorders of teeth and supporting structures (principal); J45.909 Unspecified asthma, uncomplicated; F17.200 Nicotine dependence, unspecified, uncomplicated; Z79.51 Long term (current) use of inhaled steroids; Z88.1 Allergy status to other antibiotic agents
CPT/HCPCS: 99283; 96372; 81025; J1885

== ENCOUNTER 2019-10-20 09:06 | Emergency (ER) | payer OTHER ==
[2019-10-20 09:10] VITALS: TEMP 98.1
[2019-10-20] MEDS ORDERED: IPRATROPIUM-ALBUTEROL 3 ML NEB INHALATION STA ×2 (09:26→10:00)
--- NOTE | 2019-10-20 09:27 | ED ---
General Adult HPI - General Chief complaint: Shortness of Breath Stated complaint: SOB Time Seen by Provider: 10/20/19 09:15 Source: patient, RN notes reviewed Mode of arrival: ambulatory Limitations: no limitations - History of Present Illness Initial comments: Patient is a pleasant 29-year-old female presenting to the emergency Department with complaints of difficulty in breathing. Patient states symptoms are similar to her previous asthma. No cough. Patient states symptoms have progressed with the past 2 days. Symptoms worsened last night with cooking breakfast around midnight. Patient states there was some smoke while cooking. Patient states she did try her inhaler and advise her home without much improvement. No fevers. - Related Data Home Medications Medication Instructions Recorded Confirmed Albuterol Sulfate [Proair Hfa] 2 puff INHALATION RT-QID PRN 08/13/15 02/08/18 Budesonide-Formot 160-4.5 Mcg 2 puff INHALATION RT-BID 08/13/15 02/08/18 [Symbicort 160-4.5 Mcg Inhaler] Previous Rx's Medication Instructions Recorded Ibuprofen [Motrin] 600 mg PO Q8HR PRN #30 tab 02/08/18 Ondansetron [Zofran ODT] 4 mg PO Q8HR PRN #10 tab 02/08/18 predniSONE 50 mg PO DAILY #3 tab 02/08/18 Famotidine [Pepcid] 20 mg PO DAILY #3 tablet 09/01/18 Azithromycin [Zithromax Z-pack] 0 mg PO DIRECTED #1 pack 12/24/18 predniSONE 50 mg PO DAILY #5 tab 12/24/18 Albuterol Inhaler (Mhu) [Ventolin 1 - 2 puff INHALATION Q6HR PRN #1 02/17/19 Hfa Inhaler (Mhu)] inhaler Budesonide-Formot 160-4.5 Mcg 2 puff INHALATION BID #1 inhaler 02/17/19 [Symbicort 160-4.5 Mcg Inhaler] predniSONE 60 mg PO DAILY #30 tab 02/17/19 Sulfamethox-Tmp 800-160Mg [Bactrim 1 tab PO Q12HR 10 Days #20 tab 07/17/19 DS 800-160 mg] predniSONE [Deltasone] 20 mg PO BID #10 tab 10/20/19 Allergies Allergy/AdvReac Type Severity Reaction Status Date / Time cephalexin monohydrate Allergy Unknown Verified 10/20/19 09:10 [From Keflex] clindamycin Allergy Rash/Hives Verified 10/20/19 09:10 Review of Systems ROS Statement: Those systems with pertinent positive or pertinent negative responses have been documented in the HPI. ROS Other: All systems not noted in ROS Statement are negative. Constitutional: Denies: fever Eyes: Denies: eye pain ENT: Denies: ear pain Respiratory: Reports: dyspnea. Denies: cough Cardiovascular: Denies: chest pain Endocrine: Denies: fatigue Gastrointestinal: Denies: abdominal pain Genitourinary: Denies: dysuria Musculoskeletal: Denies: back pain Skin: Denies: rash Neurological: Denies: weakness Past Medical History Past Medical History: Asthma History of Any Multi-Drug Resistant Organisms: MRSA Date of last positivie culture/infection: 2005 MDRO Source:: axilla Past Surgical History: No Surgical Hx Reported Past Psychological History: Anxiety Smoking Status: Never smoker Past Alcohol Use History: None Reported Past Drug Use History: Marijuana General Exam Limitations: no limitations General appearance: alert, in no apparent distress Head exam: Present: normocephalic Eye exam: Present: normal appearance Neck exam: Present: normal inspection Respiratory exam: Present: wheezes, decreased breath sounds. Absent: respiratory distress Cardiovascular Exam: Present: regular rate, normal rhythm Extremities exam: Present: normal inspection. Absent: pedal edema, calf tenderness Back exam: Present: normal inspection Neurological exam: Present: alert Psychiatric exam: Present: normal affect, normal mood Skin exam: Present: normal color Course Vital Signs 10/20/19 10/20/19 10/20/19 09:08 09:35 09:43 Temperature 98.1 F Pulse Rate 106 H 76 78 Respiratory 26 H Rate Blood Pressure 156/100 O2 Sat by Pulse 99 Oximetry Medical Decision Making - Medical Decision Making Patient reevaluated and feeling much better, requesting discharge. She does request a steroid injection and repeat treatment prior to discharge. Patient refuses x-ray. Patient is agreeable to close follow-up with her doctor and steroid prescription. Disposition Clinical Impression: Asthma with acute exacerbation Disposition: HOME SELF-CARE Condition: Stable Instructions (If sedation given, give patient instructions): Asthma (ED) Additional Instructions: Please do follow-up through primary care physician in the next couple days for recheck. Return for difficulty breathing, fever, worsening or change in symptoms or other concerns. Prescription was sent to [facility] pharmacy on [address] Prescriptions: predniSONE [Deltasone] 20 mg PO BID #10 tab Is patient prescribed a controlled substance at d/c from ED?: No Referrals: Nick Ray MD [Primary Care Provider] - 1-2 days Time of Disposition: 10:02
[2019-10-20] MEDS ORDERED: methylPREDNISolone SOD SUCCI 125 MG/2 ML VIAL IM STA (10:00)
[2019-10-20 10:38] VITALS: BP 132/93; PULSE 94; RESP 18
== END 2019-10-20 10:30 | disposition home or self-care (01) ==
LOC: EC 09:06
DX: J45.901 Unspecified asthma with (acute) exacerbation (principal); Z88.1 Allergy status to other antibiotic agents; Z79.51 Long term (current) use of inhaled steroids
CPT/HCPCS: 94640 ×2; 96372; 99284; J2930

== ENCOUNTER 2020-02-14 22:16 | Emergency (ER) | payer OTHER ==
[2020-02-14] MEDS ORDERED: ALBUTEROL NEBULIZED 2.5 MG/3 ML INHALATION STA ×3 (22:42→22:59)
[2020-02-14] MEDS ORDERED: IPRATROPIUM-ALBUTEROL 3 ML NEB INHALATION STA (22:48)
[2020-02-14] MEDS ORDERED: predniSONE 20 MG TAB PO STA (23:00)
--- NOTE | 2020-02-14 23:59 | XR ---
EXAMINATION TYPE: XR chest 2V DATE OF EXAM: 02/14/2020 COMPARISON: 01/01/2019 HISTORY: Chest pain Heart and mediastinum are normal. Lungs are clear. Diaphragm is normal. Bony thorax appears normal. IMPRESSION: Normal chest. No change.
[2020-02-15] MEDS ORDERED: ALBUTEROL NEBULIZED 2.5 MG/3 ML INHALATION STA (00:17)
--- NOTE | 2020-02-15 00:27 | ED ---
Pediatric SOB HPI - General Chief Complaint: Shortness of Breath Stated Complaint: SOB Time Seen by Provider: 02/14/20 22:22 Source: patient Mode of arrival: ambulatory Limitations: no limitations - History of Present Illness Initial Comments: This patient is a 29-year-old woman who complains of having what she feels is a flareup of asthma. She states that she was exposed to cigarette smoke and then she noted that she was developing a wheeze, chest tightness, and shortness of breath. She states she is starting to feel a tiny bit better as she was given a breathing treatment. She states that she tends to get about a flareup every other month or so. She did have an asthma exacerbation requiring prednisone last month. She states she has never had to have intubation. Patient denies admissions. MD Complaint: cough, wheezes, difficulty breathing -: hour(s) Fever: No Severity scale (1-10): 0 Provoking Factors: other Associated Symptoms: cough (Smoke exposure) - Related Data Home Medications Medication Instructions Recorded Confirmed Albuterol Sulfate [Proair Hfa] 2 puff INHALATION RT-QID PRN 08/13/15 02/08/18 Budesonide-Formot 160-4.5 Mcg 2 puff INHALATION RT-BID 08/13/15 02/08/18 [Symbicort 160-4.5 Mcg Inhaler] Previous Rx's Medication Instructions Recorded Ibuprofen [Motrin] 600 mg PO Q8HR PRN #30 tab 02/08/18 Ondansetron [Zofran ODT] 4 mg PO Q8HR PRN #10 tab 02/08/18 predniSONE 50 mg PO DAILY #3 tab 02/08/18 Famotidine [Pepcid] 20 mg PO DAILY #3 tablet 09/01/18 Azithromycin [Zithromax Z-pack (6 0 mg PO DIRECTED #1 pack 12/24/18 tabs)] predniSONE 50 mg PO DAILY #5 tab 12/24/18 Albuterol Inhaler (Mhu) [Ventolin 1 - 2 puff INHALATION Q6HR PRN #1 02/17/19 Hfa Inhaler (Mhu)] inhaler Budesonide-Formot 160-4.5 Mcg 2 puff INHALATION BID #1 inhaler 02/17/19 [Symbicort 160-4.5 Mcg Inhaler] predniSONE 60 mg PO DAILY #30 tab 02/17/19 Sulfamethox-Tmp 800-160Mg [Bactrim 1 tab PO Q12HR 10 Days #20 tab 07/17/19 DS 800-160 mg] predniSONE [Deltasone] 20 mg PO BID #10 tab 10/20/19 Albuterol Inhaler [Ventolin Hfa 2 puff INHALATION Q4HR PRN #1 02/15/20 Inhaler] inhaler predniSONE 60 mg PO DAILY #30 tab 02/15/20 Allergies Allergy/AdvReac Type Severity Reaction Status Date / Time cephalexin monohydrate Allergy Unknown Verified 02/14/20 22:21 [From Keflex] clindamycin Allergy Rash/Hives Verified 02/14/20 22:21 Review of Systems ROS Statement: Those systems with pertinent positive or pertinent negative responses have been documented in the HPI. ROS Other: All systems not noted in ROS Statement are negative. Constitutional: Denies: fever, chills Respiratory: Reports: cough, dyspnea, wheezes. Denies: hemoptysis Cardiovascular: Reports: palpitations. Denies: chest pain, orthopnea, edema, syncope Gastrointestinal: Denies: abdominal pain, nausea, vomiting Genitourinary: Denies: dysuria, hematuria, abnormal menses Musculoskeletal: Denies: back pain Skin: Denies: rash Neurological: Denies: headache Past Medical History Past Medical History: Asthma History of Any Multi-Drug Resistant Organisms: MRSA Date of last positivie culture/infection: 2005 MDRO Source:: axilla Past Surgical History: No Surgical Hx Reported Past Psychological History: Anxiety Smoking Status: Never smoker Past Alcohol Use History: None Reported Past Drug Use History: Marijuana General Exam Limitations: no limitations General appearance: alert, anxious Head exam: Present: atraumatic, normocephalic Eye exam: Present: normal appearance. Absent: scleral icterus, conjunctival injection Neck exam: Present: normal inspection Respiratory exam: Present: respiratory distress, wheezes, accessory muscle use, prolonged expiratory. Absent: rales, rhonchi, stridor Cardiovascular Exam: Present: normal rhythm, tachycardia, normal heart sounds. Absent: systolic murmur, diastolic murmur, rubs, gallop GI/Abdominal exam: Present: soft. Absent: distended, tenderness, guarding, rebound, rigid, mass Extremities exam: Present: normal inspection, normal capillary refill. Absent: pedal edema, calf tenderness Back exam: Present: normal inspection. Absent: CVA tenderness (R), CVA tenderness (L) Neurological exam: Present: alert Skin exam: Present: warm, dry, intact, normal color. Absent: rash Course Vital Signs 02/14/20 02/14/20 02/14/20 22:18 22:44 22:51 Temperature 98.4 F Pulse Rate 146 H 130 H 128 H Respiratory 19 Rate Blood Pressure 148/82 O2 Sat by Pulse 96 Oximetry 02/14/20 02/14/20 02/14/20 23:01 23:03 23:22 Temperature Pulse Rate 130 H 130 H 134 H Respiratory Rate Blood Pressure O2 Sat by Pulse Oximetry Medical Decision Making - Lab Data Lab Results 02/14/20 Range/Units 23:31 Coronavirus (PCR) Not Detected (Not Detectd) - EKG Data -: EKG Interpreted by Id EKG shows normal: sinus rhythm, axis (Normal), intervals (Normal), QRS complexes (Normal), ST-T waves (Normal) Rate: tachycardia (Rate approximately 134 bpm) Disposition Clinical Impression: Asthma with acute exacerbation Disposition: HOME SELF-CARE Condition: Good Instructions (If sedation given, give patient instructions): Asthma (ED) Prescriptions: predniSONE 60 mg PO DAILY #30 tab Albuterol Inhaler [Ventolin Hfa Inhaler] 2 puff INHALATION Q4HR PRN #1 inhaler PRN Reason: Wheezing Is patient prescribed a controlled substance at d/c from ED?: No Referrals: Nick Ray MD [Primary Care Provider] - 1-2 days
[2020-02-15 01:48] VITALS: BP 147/91; PULSE 126; RESP 22; TEMP 98.1
== END 2020-02-15 01:10 | disposition home or self-care (01) ==
LOC: EC 22:16
DX: J45.901 Unspecified asthma with (acute) exacerbation (principal); R00.0 Tachycardia, unspecified; J45.909 Unspecified asthma, uncomplicated; Z20.828 Contact with and (suspected) exposure to other viral communicable diseases; Z79.51 Long term (current) use of inhaled steroids; Z88.1 Allergy status to other antibiotic agents; Z86.14 Personal history of Methicillin resistant Staphylococcus aureus infection
CPT/HCPCS: 94640 ×2; 93005; 87635; 71046; 99285; J7512

== ENCOUNTER 2023-09-17 06:44 | Day surgery (SDC) | payer BC ==
[2023-09-17] MEDS: LACTATED RINGERS 1,000 ML IV ONE (07:32)
[2023-09-17] MEDS ORDERED: LIDOCAINE 1% INJ 10MG/ML (20 ML MDV) ONE (07:35)
[2023-09-17] MEDS ORDERED: PROPOFOL 10 MG/ML 20 ML VIAL IV ONE (07:35)
--- NOTE | 2023-12-08 20:27 | P.GSHP ---
History of Present Illness H&P Date: 09/17/23 CHIEF COMPLAINT: GERD HISTORY OF PRESENT ILLNESS: The patient is a 33-year-old female who presents reports gastroesophageal reflux disease. Upper endoscopy was offered for further evaluation and management. PAST MEDICAL HISTORY: Please see list. PAST SURGICAL HISTORY: Please see list. MEDICATIONS: Please see list. ALLERGIES: Please see list. SOCIAL HISTORY: No illicit drug use FAMILY HISTORY: No reports of Crohn disease or ulcerative colitis. REVIEW OF ORGAN SYSTEMS: CONSTITUTIONAL: No reports of fevers or chills. GI: Denies any blood in stools or constipation. PHYSICAL EXAM: VITAL SIGNS: Stable GENERAL: Well-developed and pleasant in no acute distress. HEENT: No scleral icterus. Extraocular movements grossly intact. Moist buccal mucosa. NECK: Supple without lymphadenopathy. CHEST: Unlabored respirations. Equal bilateral excursions. CARDIOVASCULAR: Regular rate and rhythm. Distal 2+ pulses. ABDOMEN: Soft, nondistended. MUSCULOSKELETAL: No clubbing, cyanosis, or edema. ASSESSMENT: 1. Gastroesophageal reflux disease PLAN: 1. Recommend proceeding with an upper endoscopy Past Medical History Past Medical History: Asthma History of Any Multi-Drug Resistant Organisms: MRSA Date of last positivie culture/infection: 2005 MDRO Source:: axilla Past Surgical History: No Surgical Hx Reported Additional Past Surgical History / Comment(s): wisdom teeth removed Past Anesthesia/Blood Transfusion Reactions: No Reported Reaction Smoking Status: Former smoker - Past Family History Father Family Medical History: Hypertension Medications and Allergies Home Medications Medication Instructions Recorded Confirmed Type Budesonide-Formot 160-4.5 Mcg 2 puff INHALATION BID #1 inhaler 02/17/19 11/21/23 Rx [Symbicort 160-4.5 Mcg Inhaler] ARIPiprazole [Abilify] 5 mg PO DAILY 08/22/23 11/21/23 History Albuterol Nebulized [Ventolin 1.25 mg INHALATION Q6H PRN 08/22/23 11/21/23 History Nebulized (Accuneb)] clonazePAM 0.5 mg PO DAILY 08/22/23 11/21/23 History Non Formulary Drug 1 tab PO DAILY 10/17/23 11/21/23 History Omeprazole [PriLOSEC] 40 mg PO DAILY #90 cap 10/17/23 11/21/23 Rx Albuterol Nebulized [Ventolin 2.5 mg INHALATION DIRECTED PRN 11/08/23 11/21/23 History Nebulized] Cholecalciferol (Vitamin D3) 50,000 tab PO DIRECTED 11/08/23 11/21/23 History [Vitamin D3 (1250 Mcg = 50,000 Iu)] Cyanocobalamin (Vitamin B-12) 500 mcg PO DAILY 11/08/23 11/21/23 History [Vitamin B-12] Multivit-Min/Folic Acid/Biotin 133.3 mcg PO DAILY 11/08/23 11/21/23 History [Hair, Skin and Nails Softgel] Omeprazole [PriLOSEC] 40 mg PO DAILY #90 cap 11/21/23 Rx Allergies Allergy/AdvReac Type Severity Reaction Status Date / Time cephalexin monohydrate Allergy Unknown Verified 11/21/23 14:42 [From Keflex] clindamycin Allergy Rash/Hives Verified 11/21/23 14:42
--- NOTE | 2023-12-08 20:30 | P.PCN ---
Date of Procedure: 09/17/23 Description of Procedure: PREOPERATIVE DIAGNOSIS: Gastroesophageal reflux disease. Morbid obesity due to excess calories, BMI 40.3 POSTOPERATIVE DIAGNOSIS: Gastroesophageal reflux disease with erosive esophagitis Morbid obesity. Gastritis. Diaphragmatic hiatal hernia Gastric polyps Duodenal adenoma OPERATION: Esophagogastroduodenoscopy with biopsies along esophagus, antrum and duodenum SURGEON: Talya Vazquez MD ANESTHESIA: MAC. INDICATIONS: The patient is a 33-year-old female who presents with reflux disease. Benefits and risks of the procedure were described. Informed consent was obtained. DESCRIPTION: The patient was brought into the endoscopy suite and laid in the left lateral decubitus position. An Olympus gastroscope was passed along the posterior oropharynx down to the distal esophagus where the squamocolumnar junction was encountered at 35 cm from the incisors. The stomach was entered and no bile reflux was found. Additional findings are listed below. Biopsies with cold forceps were obtained of the antrum. The first through third portion of the duodenum was examined. Retroflexion of the scope confirmed Hill grade 3 lower esophageal valve. The squamocolumnar junction demonstrated LA grade B erosive esophagitis. The stomach was desufflated. The patient tolerated the procedure well. FINDINGS: Squamocolumnar junction 35 cm from the incisors. Diaphragmatic hiatus at 40 cm. Hiatal hernia, 5 cm Hill grade 4 lower esophageal valve. LA grade C erosive esophagitis. Biopsies obtained Biopsies obtained of the duodenum. Chronic gastritis with biopsies obtained. Multiple duodenal adenomas identified along the 1st through 3rd portion of the duodenum, 5 to 8 mm in size, biopsies obtained Multiple gastric polyps 3 to 4 mm, biopsies obtained RECOMMENDATIONS: Pending pathology, repeat upper endoscopy advised for additional biopsies of duodenum and gastric polyps for possible resection Plan - Discharge Summary Discharge Rx Participant: No New Discharge Prescriptions: No Action Budesonide-Formot 160-4.5 Mcg [Symbicort 160-4.5 Mcg Inhaler] 2 puff INHALATION BID #1 inhaler Albuterol Nebulized [Ventolin Nebulized (Accuneb)] 1.25 mg INHALATION Q6H PRN PRN Reason: Wheezing ARIPiprazole [Abilify] 5 mg PO DAILY Cyanocobalamin (Vitamin B-12) [Vitamin B-12] 500 mcg PO DAILY clonazePAM 0.5 mg PO DAILY Omeprazole [PriLOSEC] 40 mg PO DAILY #90 cap Non Formulary Drug 1 tab PO DAILY Multivit-Min/Folic Acid/Biotin [Hair, Skin and Nails Softgel] 133.3 mcg PO DAILY Albuterol Nebulized [Ventolin Nebulized] 2.5 mg INHALATION DIRECTED PRN PRN Reason: Wheezing Cholecalciferol (Vitamin D3) [Vitamin D3 (1250 Mcg = 50,000 Iu)] 50,000 tab PO DIRECTED Omeprazole [PriLOSEC] 40 mg PO DAILY #90 cap Discharge Medication List Budesonide-Formot 160-4.5 Mcg [Symbicort 160-4.5 Mcg Inhaler] 2 puff INHALATION BID #1 inhaler 02/17/19 [Rx] ARIPiprazole [Abilify] 5 mg PO DAILY 08/22/23 [History] Albuterol Nebulized [Ventolin Nebulized (Accuneb)] 1.25 mg INHALATION Q6H PRN 08/22/23 [History] clonazePAM 0.5 mg PO DAILY 08/22/23 [History] Non Formulary Drug 1 tab PO DAILY 10/17/23 [History] Omeprazole [PriLOSEC] 40 mg PO DAILY #90 cap 10/17/23 [Rx] Albuterol Nebulized [Ventolin Nebulized] 2.5 mg INHALATION DIRECTED PRN 11/08/23 [History] Cholecalciferol (Vitamin D3) [Vitamin D3 (1250 Mcg = 50,000 Iu)] 50,000 tab PO DIRECTED 11/08/23 [History] Cyanocobalamin (Vitamin B-12) [Vitamin B-12] 500 mcg PO DAILY 11/08/23 [History] Multivit-Min/Folic Acid/Biotin [Hair, Skin and Nails Softgel] 133.3 mcg PO DAILY 11/08/23 [History] Omeprazole [PriLOSEC] 40 mg PO DAILY #90 cap 11/21/23 [Rx]
== END 2023-09-17 08:40 ==
LOC: ORWHC2ENDO 06:44
PROVIDERS: ATTEND Surgery Plastic and Reconstructive Surgery
DX: K21.00 Gastro-esophageal reflux disease with esophagitis, without bleeding
CPT/HCPCS: 43239; 81025; 88305

== ENCOUNTER 2023-11-12 07:59 | Day surgery (SDC) | payer BC ==
[2023-11-08 15:41] VITALS: BMI 41.1
--- NOTE | 2023-11-12 05:34 | P.GSHP ---
History of Present Illness H&P Date: 11/12/23 CHIEF COMPLAINT: Duodenal adenoma HISTORY OF PRESENT ILLNESS: The patient is a 33-year-old female who presents reports gastroesophageal reflux disease and has duodenal adenoma recently diagnosed over 2 months ago. Upper endoscopy was offered for further evaluation and management. PAST MEDICAL HISTORY: Please see list. PAST SURGICAL HISTORY: Please see list. MEDICATIONS: Please see list. ALLERGIES: Please see list. SOCIAL HISTORY: No illicit drug use FAMILY HISTORY: No reports of Crohn disease or ulcerative colitis. REVIEW OF ORGAN SYSTEMS: CONSTITUTIONAL: No reports of fevers or chills. GI: Denies any blood in stools or constipation. PHYSICAL EXAM: VITAL SIGNS: Stable GENERAL: Well-developed and pleasant in no acute distress. HEENT: No scleral icterus. Extraocular movements grossly intact. Moist buccal mucosa. NECK: Supple without lymphadenopathy. CHEST: Unlabored respirations. Equal bilateral excursions. CARDIOVASCULAR: Regular rate and rhythm. Distal 2+ pulses. ABDOMEN: Soft, nondistended. MUSCULOSKELETAL: No clubbing, cyanosis, or edema. ASSESSMENT: 1. Gastroesophageal reflux disease 2. Duodenal adenoma PLAN: 1. Recommend proceeding with an upper endoscopy Past Medical History Past Medical History: Asthma Additional Past Medical History / Comment(s): Anxiety, patient takes edibles 1-2/day- told to not take 24 hours prior to procedure. History of Any Multi-Drug Resistant Organisms: MRSA Date of last positivie culture/infection: 2005 MDRO Source:: axilla L Past Surgical History: No Surgical Hx Reported Additional Past Surgical History / Comment(s): wisdom teeth removed Past Anesthesia/Blood Transfusion Reactions: No Reported Reaction Smoking Status: Former smoker - Past Family History Father Family Medical History: Hypertension Mother Additional Family Medical History / Comment(s): Anxiety, depression, bipolar Medications and Allergies Home Medications Medication Instructions Recorded Confirmed Type Budesonide-Formot 160-4.5 Mcg 2 puff INHALATION BID #1 inhaler 02/17/19 11/08/23 Rx [Symbicort 160-4.5 Mcg Inhaler] ARIPiprazole [Abilify] 5 mg PO DAILY 08/22/23 11/08/23 History Albuterol Nebulized [Ventolin 1.25 mg INHALATION Q6H PRN 08/22/23 11/08/23 History Nebulized (Accuneb)] clonazePAM [Clonazepam] 0.5 mg PO DAILY 08/22/23 11/08/23 History Non Formulary Drug 1 tab PO DAILY 10/17/23 11/08/23 History Omeprazole [PriLOSEC] 40 mg PO DAILY #90 cap 10/17/23 11/08/23 Rx Albuterol Nebulized [Ventolin 2.5 mg INHALATION DIRECTED PRN 11/08/23 11/08/23 History Nebulized] Cholecalciferol (Vitamin D3) 50,000 tab PO DIRECTED 11/08/23 11/08/23 History [Vitamin D3 (1250 Mcg = 50,000 Iu)] Cyanocobalamin (Vitamin B-12) 500 mcg PO DAILY 11/08/23 11/08/23 History [Vitamin B-12] Multivit-Min/Folic Acid/Biotin 133.3 mcg PO DAILY 11/08/23 11/08/23 History [Hair, Skin and Nails Softgel] Allergies Allergy/AdvReac Type Severity Reaction Status Date / Time cephalexin monohydrate Allergy Unknown Verified 11/08/23 15:30 [From [facility]] clindamycin Allergy Rash/Hives Verified 11/08/23 15:30
[2023-11-12] MEDS: IV FLUID CONTINUATION 1,000 ML IV ONE (08:11)
[2023-11-12] MEDS: LACTATED RINGERS 1,000 ML BAG IV STA (08:17)
[2023-11-12 08:22] VITALS: TEMP 96.9
[2023-11-12] MEDS ORDERED: LIDOCAINE 1% INJ 10MG/ML (20 ML MDV) ONE (09:53)
[2023-11-12] MEDS ORDERED: PROPOFOL 10 MG/ML 20 ML VIAL IV ONE (09:53)
[2023-11-12] MEDS ORDERED: LIDOCAINE 1% (10MG/ML) FOR IV START INTRADERMA PRN (10:12)
[2023-11-12] MEDS ORDERED: LACTATED RINGERS 1,000 ML IV SCH (10:12)
[2023-11-12] MEDS: SODIUM CHLORIDE 0.9% 500 ML 500 ML IV ONE (10:34)
[2023-11-12 10:57] VITALS: BP 139/76; PULSE 77; RESP 18
--- NOTE | 2023-11-12 11:00 | P.PCN ---
Date of Procedure: 11/12/23 Description of Procedure: PREOPERATIVE DIAGNOSIS: Gastroesophageal reflux disease. Morbid obesity. POSTOPERATIVE DIAGNOSIS: Gastroesophageal reflux disease. Morbid obesity. Gastritis. Duodenal adenoma Gastric polyp OPERATION: Esophagogastroduodenoscopy with biopsies along esophagus, antrum and duodenum Esophagogastroduodenoscopy with hot snare polypectomy, third portion duodenum Small bowel push enteroscopy to jejunum using pediatric colonoscope with retrieval using Camacho net SURGEON: Talya Vazquez MD ANESTHESIA: MAC. INDICATIONS: The patient is a 33-year-old female who presents with adenoma of the duodenum and reflux disease. Benefits and risks of the procedure were described. Informed consent was obtained. DESCRIPTION: The patient was brought into the endoscopy suite and laid in the left lateral decubitus position. An Olympus gastroscope was passed along the posterior oropharynx down to the distal esophagus where the squamocolumnar junction was encountered at 35 cm from the incisors. The stomach was entered and no bile reflux was found. Additional findings are listed below. Biopsies with cold forceps were obtained of the antrum. The first through third portion of the duodenum was examined. Retroflexion of the scope confirmed Hill grade 2 lower esophageal valve. The squamocolumnar junction demonstrated LA grade B erosive esophagitis. The stomach was desufflated. The patient tolerated the procedure well. FINDINGS: Squamocolumnar junction 35 cm from the incisors. Diaphragmatic hiatus at 35 cm. Multiple gastric polyps at gastric cardia and fundus, 2 to 3 mm biopsy obtained cold forceps Hill grade 2 lower esophageal valve. Duodenal adenoma 8 mm resected using hot snare and completion third portion of duodenum with multiple small 3 mm adenomas involving proximal jejunum LA grade B erosive esophagitis. Push enteroscopy through jejunum identified additional adenomas, scattered, less than 3 mm Chronic gastritis with biopsies obtained. RECOMMENDATIONS: Additional intervention pending results of duodenal biopsy Bariatric procedures on hold pending results Plan - Discharge Summary Discharge Rx Participant: No New Discharge Prescriptions: Continue Budesonide-Formot 160-4.5 Mcg [Symbicort 160-4.5 Mcg Inhaler] 2 puff INHALATION BID #1 inhaler Albuterol Nebulized [Ventolin Nebulized (Accuneb)] 1.25 mg INHALATION Q6H PRN PRN Reason: Wheezing ARIPiprazole [Abilify] 5 mg PO DAILY Cyanocobalamin (Vitamin B-12) [Vitamin B-12] 500 mcg PO DAILY clonazePAM 0.5 mg PO DAILY Omeprazole [PriLOSEC] 40 mg PO DAILY #90 cap Non Formulary Drug 1 tab PO DAILY Multivit-Min/Folic Acid/Biotin [Hair, Skin and Nails Softgel] 133.3 mcg PO DAILY Albuterol Nebulized [Ventolin Nebulized] 2.5 mg INHALATION DIRECTED PRN PRN Reason: Wheezing Cholecalciferol (Vitamin D3) [Vitamin D3 (1250 Mcg = 50,000 Iu)] 50,000 tab PO DIRECTED Discharge Medication List Budesonide-Formot 160-4.5 Mcg [Symbicort 160-4.5 Mcg Inhaler] 2 puff INHALATION BID #1 inhaler 02/17/19 [Rx] ARIPiprazole [Abilify] 5 mg PO DAILY 08/22/23 [History] Albuterol Nebulized [Ventolin Nebulized (Accuneb)] 1.25 mg INHALATION Q6H PRN 08/22/23 [History] clonazePAM 0.5 mg PO DAILY 08/22/23 [History] Non Formulary Drug 1 tab PO DAILY 10/17/23 [History] Omeprazole [PriLOSEC] 40 mg PO DAILY #90 cap 10/17/23 [Rx] Albuterol Nebulized [Ventolin Nebulized] 2.5 mg INHALATION DIRECTED PRN 11/08/23 [History] Cholecalciferol (Vitamin D3) [Vitamin D3 (1250 Mcg = 50,000 Iu)] 50,000 tab PO DIRECTED 11/08/23 [History] Cyanocobalamin (Vitamin B-12) [Vitamin B-12] 500 mcg PO DAILY 11/08/23 [History] Multivit-Min/Folic Acid/Biotin [Hair, Skin and Nails Softgel] 133.3 mcg PO DAILY 11/08/23 [History] [facility]Ref[place] [facility] [place] [place] [facility] [place] 11/28/23 2:00 pm Patient Instructions/Handouts: Duodenitis (DC) Discharge Disposition: HOME SELF-CARE
== END 2023-11-12 11:15 | disposition home or self-care (01) ==
LOC: ORWHC2ENDO 07:59
PROVIDERS: ATTEND Surgery Plastic and Reconstructive Surgery
DX: K21.00 Gastro-esophageal reflux disease with esophagitis, without bleeding
CPT/HCPCS: 43239; 43251; 44361; 81025; 88305; 88313

== ENCOUNTER → 2023-11-21 | Outpatient (CLI) | payer BC ==
[2023-11-21 14:48] VITALS: BP 114/87; PULSE 81; RESP 16; TEMP 97.6; BMI 42.4
--- NOTE | 2023-11-21 15:24 | P.BASOAP ---
Subjective Progress Note Date: 11/21/23 Pathology report with adenoma of the duodenum. Moderate polyps found. High risk for duodenal cancer. Plan for referral to GI for further management, resection of additional duodenal adenoma. Omeprazole prescribed for 6 months. High risk for gastric bypass with exclusion of duodenum, alternative of sleeve. Objective - Vital Signs Vital signs: Vital Signs Temp 97.6 F 11/21/23 14:41 Pulse 81 11/21/23 14:41 Resp 16 11/21/23 14:41 BP 114/87 11/21/23 14:41 Pulse Ox FiO2 Intake & Output 11/20/23 11/21/23 11/21/23 18:59 06:59 18:59 Weight 112.037 kg Assessment/Plan Plan: Date: 11/21/23 Initial Weight: 106.764 kg Initial BMI: 40.4 Current Weight: 112.037 kg Current BMI: 42.4 Type of Surgery: Total Volume in Band: Previous Volume: Volume Removed: Volume Added: Band Size:
== END | disposition home or self-care (01) ==
LOC: BARWHC3 13:48
PROVIDERS: ATTEND Surgery Plastic and Reconstructive Surgery
DX: E66.01 Morbid (severe) obesity due to excess calories (principal); F17.200 Nicotine dependence, unspecified, uncomplicated; Z68.41 Body mass index [BMI] 40.0-44.9, adult; Z88.1 Allergy status to other antibiotic agents
CPT/HCPCS: 99211

== ENCOUNTER 2024-01-18 06:41 | Day surgery (SDC) | payer BC ==
[2024-01-15 12:24] VITALS: BMI 42.9
[2024-01-18 07:14] VITALS: TEMP 97.8
[2024-01-18] MEDS: IV FLUID CONTINUATION 1,000 ML IV ONE (07:22)
[2024-01-18] MEDS: LACTATED RINGERS 1,000 ML IV SCH (07:22)
[2024-01-18] MEDS ORDERED: GLYCOPYRROLATE 0.2 MG/ML 2 ML VIAL ONE (07:41)
[2024-01-18] MEDS ORDERED: KETAMINE HCL IN 0.9 % NACL 50 MG/5 ML SYRINGE ONE (07:41)
[2024-01-18] MEDS ORDERED: MIDAZOLAM 2 MG/2 ML VIAL ONE (07:41)
[2024-01-18] MEDS ORDERED: PROPOFOL 10 MG/ML 20 ML VIAL IV ONE (07:41)
[2024-01-18] MEDS ORDERED: fentaNYL (PF) 50 MCG/ML 2 ML AMP ONE (07:41)
[2024-01-18] MEDS ORDERED: LIDOCAINE 1% INJ 10MG/ML (20 ML MDV) ONE (07:41)
--- NOTE | 2024-01-18 08:33 | P.PCN ---
Date of Procedure: 01/18/24 Procedure(s) Performed: Brief history: Patient is a pleasant 33-year-old -[place] female scheduled for an elective upper endoscopy as well as colonoscopy as a part of evaluation of multiple small duodenal polyps that were noted on recent upper endoscopy which was done as a part of evaluation of bariatric surgery. Some of the polyps were removed and the biopsies revealed adenoma. Because of multiple polyps within the duodenum she is scheduled for a colonoscopy also as well as repeat upper endoscopy today. Procedure performed: Colonoscopy with snare polypectomy EGD with snare polypectomy Preoperative diagnosis: History of multiple small duodenal polyps/adenoma Screening for for colorectal neoplasia Anesthesia: MAC Procedure: After informed consent was obtained from the patient was brought into the endoscopy unit and IV sedation was administered by anesthesia under continuous monitoring. At this time the patient continued to remain sedation. Initial digital rectal examination was normal. Olympus CF 160 video colonoscope was then inserted into the rectum and gradually advanced to the cecum without any difficulty. Careful examination was performed as the scope was gradually being withdrawn. The prep was excellent. The cecum, had almost 10 polyps all measuring between 5 mm to 1 cm in size which were removed by snare polypectomy. In the ascending colon there were at least 20 polyps but approximately 10 polyps every measuring between 5 mm to 6 mm in size were removed by snare polypectomy. Other small 2 to 3 mm polyps were not removed. In the transverse colon there were at least 20 polyps noted and a few polyps were removed all measuring between 5 to 6 mm in size. In the descending colon there was a 1.5 cm polyp removed by snare polypectomy. Other 2 small 5 mm polyps were also removed by snare polypectomy. The sigmoid colon there were 3 polyps all measuring about 8 mm to 1 cm in size removed by snare polypectomy. The rectum appeared normal. Retroflexion was performed in the rectum and no lesions were noted. Patient tolerated the procedure well. She continues to remain sedated the Olympus GF 160 video. Colonoscopy was inserted inserted into the mouth and esophagus intubated without any difficulty and was gradually advanced into the stomach and duodenum and carefully examined. The bulb and second part of the duodenum had multiple small polyps measuring between 3 to 5 mm in size and there were at least 20 of these polyps noted in this area using snare polypectomy. The scope was advanced into the proximal jejunum and there is a few scattered polyps noted in this area that could not be removed. The scope was then withdrawn into the stomach adequately insufflated with air and upon careful examination the antrum and body, cardia and fundus appeared normal. Several small 2 to 3 mm fundal colon polyps were identified. The scope was then withdrawn into the esophagus. Hiatal hernia noted. The GE junction was located at 40 cm to the incisors. It appeared regular with no erythema erosions or ulcerations. Rest of the esophagus appeared normal. Patient tolerated the procedure well. Impression: 1. Colonoscopy removed: a) 10 polyps in the cecum measuring between 5 mm to 1 cm in size removed by snare polypectomy b) polyps in the ascending colon measuring between 5 to 6 mm in size removed by snare polypectomy c) polyps in the transverse colon measuring between 3 to 6 mm in size somewhat were removed by snare polypectomy and others were not removed. d) 2 cm descending colon polyp status post polypectomy e) 3 polyps in the sigmoid colon measuring between 8 mm to 1 cm in size removed by snare polypectomy 2. Upper endoscopy revealed: a)Multiple small duodenal polyps measuring between 3 mm to 5 mm in size located in the bulb, second third fourth part of the duodenum and into the proximal jejunum and some of the polyps were removed. b)Small gastric polyps measuring between 2 to 3 mm in size c)Small hiatal hernia Recommendations: Findings of this examination were discussed with the patient as well as her family. She was advised to follow-up in the office in 1 week. Will obtain genetic testing to evaluate for polyposis syndromes and possible referral to gastroenterology at [facility] for further management and consideration for surgery..
[2024-01-18 09:11] VITALS: RESP 16
[2024-01-18 09:12] VITALS: BP 113/71; PULSE 74
== END 2024-01-18 09:27 | disposition home or self-care (01) ==
LOC: ORWHC2ENDO 06:41
PROVIDERS: ATTEND Internal Medicine Gastroenterology
DX: Z12.11 Encounter for screening for malignant neoplasm of colon (principal); D12.0 Benign neoplasm of cecum; D12.2 Benign neoplasm of ascending colon; D12.3 Benign neoplasm of transverse colon; D12.4 Benign neoplasm of descending colon; D12.5 Benign neoplasm of sigmoid colon; K31.7 Polyp of stomach and duodenum; K44.9 Diaphragmatic hernia without obstruction or gangrene; J45.909 Unspecified asthma, uncomplicated; F41.9 Anxiety disorder, unspecified; F32.A Depression, unspecified; Z79.51 Long term (current) use of inhaled steroids; Z88.1 Allergy status to other antibiotic agents; Z79.899 Other long term (current) drug therapy
CPT/HCPCS: 81025; 88305; 45385; 43251; J2250; J2003; J3010; J2704; J1596

== ENCOUNTER 2024-03-01 04:07 | Emergency (ER) | payer BC ==
[2024-03-01 04:31] VITALS: TEMP 98.5
--- NOTE | 2024-03-01 05:41 | ED ---
Alcohol HPI - General Chief Complaint: Alcohol Stated Complaint: EtOH Time Seen by Provider: 03/01/24 04:24 Source: patient Mode of arrival: EMS Limitations: no limitations - History of Present Illness Initial Comments: This patient is a 33-year-old woman brought to have evaluation after she had passed out. The patient had been drinking with friends. No trauma reported. The patient responsive and denying injury. She does admit to drinking moderate amount tonight. Patient has no complaints MD Complaint: alcohol intoxication Last Drink: just [employer] -: minute(s) Previous Visits for Alcohol Intoxication?: No Recent Trauma: No Associated Symptoms: syncope Treatments Prior to Arrival: none Chronic Alcohol Use: No - Related Data Home Medications Medication Instructions Recorded Confirmed Albuterol Nebulized [Ventolin 1.25 mg INHALATION Q6H PRN 08/22/23 01/18/24 Nebulized (Accuneb)] clonazePAM 0.5 mg PO DAILY 08/22/23 01/18/24 Albuterol Nebulized [Ventolin 2.5 mg INHALATION DIRECTED PRN 11/08/23 01/18/24 Nebulized] Cholecalciferol (Vitamin D3) 50,000 tab PO DIRECTED 11/08/23 01/18/24 [Vitamin D3 (1250 Mcg = 50,000 Iu)] Cyanocobalamin (Vitamin B-12) 500 mcg PO DAILY 11/08/23 01/18/24 [Vitamin B-12] Previous Rx's Medication Instructions Recorded Budesonide-Formot 160-4.5 Mcg 2 puff INHALATION BID #1 inhaler 02/17/19 [Symbicort 160-4.5 Mcg Inhaler] Omeprazole [PriLOSEC] 40 mg PO DAILY #90 cap 11/21/23 Allergies Allergy/AdvReac Type Severity Reaction Status Date / Time cephalexin monohydrate Allergy Unknown Verified 03/01/24 04:31 [From Keflex] clindamycin Allergy Rash/Hives Verified 03/01/24 04:31 Review of Systems ROS Statement: Those systems with pertinent positive or pertinent negative responses have been documented in the HPI. ROS Other: All systems not noted in ROS Statement are negative. Constitutional: Denies: fever Eyes: Denies: vision change Respiratory: Denies: cough, dyspnea Cardiovascular: Denies: chest pain, palpitations Gastrointestinal: Reports: vomiting. Denies: abdominal pain, diarrhea, hematemesis Genitourinary: Denies: dysuria Musculoskeletal: Denies: back pain Skin: Denies: rash Neurological: Denies: headache, weakness Psychiatric: Denies: depression, suicidal thoughts Past Medical History Past Medical History: Asthma Additional Past Medical History / Comment(s): Anxiety, patient takes edibles 1-2/day- told to not take 24 hours prior to procedure. History of Any Multi-Drug Resistant Organisms: MRSA Date of last positivie culture/infection: 2008 MDRO Source:: axilla L Past Surgical History: No Surgical Hx Reported Additional Past Surgical History / Comment(s): wisdom teeth removed, egd Past Anesthesia/Blood Transfusion Reactions: No Reported Reaction Additional Past Anesthesia/Blood Transfusion Reaction / Comment(s): no blood transfusion Past Psychological History: Anxiety, Depression Smoking Status: Former smoker - Past Family History Father Family Medical History: Hypertension Mother Additional Family Medical History / Comment(s): Anxiety, depression, bipolar General Exam Limitations: no limitations General appearance: alert, appears intoxicated Head exam: Present: atraumatic, normocephalic Eye exam: Present: normal appearance, PERRL, EOMI, nystagmus. Absent: scleral icterus, conjunctival injection ENT exam: Present: normal oropharynx Neck exam: Present: normal inspection, full ROM. Absent: tenderness Respiratory exam: Present: normal lung sounds bilaterally. Absent: respiratory distress, wheezes, rales, rhonchi, stridor, accessory muscle use Cardiovascular Exam: Present: regular rate, normal rhythm, normal heart sounds. Absent: systolic murmur, diastolic murmur, rubs, gallop GI/Abdominal exam: Present: soft. Absent: distended, tenderness, guarding, rebound, rigid, mass Extremities exam: Present: normal inspection, normal capillary refill. Absent: pedal edema, calf tenderness Back exam: Present: normal inspection. Absent: CVA tenderness (R), CVA tenderness (L), vertebral tenderness Neurological exam: Present: alert Skin exam: Present: warm, dry, intact, normal color. Absent: rash Course Vital Signs 03/01/24 03/01/24 04:26 05:41 Temperature 98.5 F Pulse Rate 89 96 Respiratory 22 20 Rate Blood Pressure 127/84 132/81 O2 Sat by Pulse 95 97 Oximetry Medical Decision Making - Medical Decision Making Was pt. sent in by a medical professional or institution ([facility], BANK TELLER, urgent care, hospital, or alf...) When possible be specific @ -[No] Did you speak to anyone other than the patient for history (EMS, parent, family, police, friend...)? What history was obtained from this source @ -[No] Did you review nursing and triage notes (agree or disagree)? Why? @ -[I reviewed and agree with nursing and triage notes] Were old charts reviewed (outside hosp., previous admission, EMS record, old EKG, old radiological studies, urgent care reports/EKG's, alf records)? Report findings @ -[No old charts were reviewed] Differential Diagnosis (chest pain, altered mental status, abdominal pain women, abdominal pain men, vaginal bleeding, weakness, fever, dyspnea, syncope, headache, dizziness, GI bleed, back pain, seizure, CVA, palpatations, mental health, musculoskeletal)? @ -[Differential Syncope: Valvular disease, hypertrophic cardiomyopathy, pulmonary embolism, tamponade, tachycardia, bradycardia, PR, hypovolemia, hemorrhage, dissection, anemia, intracranial hemorrhage, seizure, hypoglycemia, carbon monoxide poisoning, this is not meant to be an all-inclusive list. EKG interpreted by me (3pts min.). @ -[As above] X-rays interpreted by me (1pt min.). @ -[None done] CT interpreted by me (1pt min.). @ -[None done] U/S interpreted by me (1pt. min.). @ -[None done] What testing was considered but not performed or refused? (CT, X-rays, U/S, labs)? Why? @ -[None] What meds were considered but not given or refused? Why? @ -[None] Did you discuss the management of the patient with other professionals (professionals i.e. [facility], BANK TELLER, lab, RT, psych nurse, aids social worker, [employer] teacher, teacher, national insurance officer, lead case manager)? Give summary @ -[No] Was smoking cessation discussed for >3mins.? @ -[No] Was critical care preformed (if so, how long)? @ -[No] Were there social determinants of health that impacted care today? How? (Homelessness, low income, unemployed, alcoholism, drug addiction, transportation, low edu. Level, literacy, decrease access to med. care, intermediate, rehab)? @ -[No] Was there de-escalation of care discussed even if they declined (Discuss DNR or withdrawal of care, Hospice)? DNR status @ -[No] What co-morbidities impacted this encounter? (DM, HTN, Smoking, COPD, CAD, Cancer, CVA, ARF, Chemo, Hep., AIDS, mental health diagnosis, sleep apnea, morbid obesity)? @ -[None] Was patient admitted / discharged? Hospital course, mention meds given and route, prescriptions, significant lab abnormalities, going to OR and other pertinent info. @ -[Patient is 33-year-old woman brought to have evaluation after she had passed out while drinking. The patient is becoming more alert and able to s upport herself, and therefore able to be discharged in care of her friends. They will continue to observe her and return if there is any change in condition. Undiagnosed new problem with uncertain prognosis? @ -[No] Drug Therapy requiring intensive monitoring for toxicity (Heparin, Nitro, Insulin, Cardizem)? @ -[No] Were any procedures done? @ -[No] Diagnosis/symptom? @ -[Alcohol intoxication Syncopal event related to alcohol intoxication Acute, or Chronic, or Acute on Chronic? @ -[Acute Uncomplicated (without systemic symptoms) or Complicated (systemic symptoms)? @ -[Complicated by syncopal event Side effects of treatment? @ -[No] Exacerbation, Progression, or Severe Exacerbation? @ -[No] Poses a threat to life or bodily function? How? (Chest pain, [place], PR, pneumonia, PE, COPD, DKA, ARF, appy, cholecystitis, CVA, Diverticulitis, Homicidal, Suicidal, threat to staff... and all critical care pts) @ -[No] All treatments are based on ideal body weight as in ED triage - EKG Data -: EKG Interpreted by Me EKG shows normal: sinus rhythm, axis (Normal), intervals (Normal), QRS complexes (Normal), ST-T waves (Normal) Rate: normal (Rate 84 bpm) Interpretation: normal EKG Disposition Clinical Impression: Alcoholic intoxication Disposition: HOME SELF-CARE Condition: Good Instructions (If sedation given, give patient instructions): Alcohol Intox ication (ED) Is patient prescribed a controlled substance at d/c from ED?: No Referrals: Nick Ray MD [Primary Care Provider] - 1-2 days
[2024-03-01 06:03] VITALS: BP 132/81; PULSE 96; RESP 20
== END 2024-03-01 06:03 | disposition home or self-care (01) ==
LOC: EC 04:07
DX: F10.129 Alcohol abuse with intoxication, unspecified (principal); Z88.1 Allergy status to other antibiotic agents; Z87.891 Personal history of nicotine dependence
CPT/HCPCS: 99284